=== PATIENT | female | born 1985 | race American Indian/Alaskan Native ===

== ENCOUNTER 2017-03-11 14:01 | Emergency (ER) | payer OTHER ==
[2017-03-11 14:15] VITALS: BP 136/72; PULSE 110; RESP 16; TEMP 98.1; O2SAT 100
--- NOTE | 2017-03-11 15:06 | ED PDOC ---
HPI: Wound Care - HPI Chief Complaint (Nursing): Abnormal Skin Integrity Chief Complaint (Provider): post op poor wound closure History Per: Patient Exam Limitations: no limitations Onset/Duration Of Symptoms: Days Current Symptoms Are (Timing): Still Present Quality Of Symptoms: Other Severity: Mild Additional History Per: Patient Additional Complaint(s): 32 y/o healthy F presenting s/p breast reduction surgery in [place] February 03 2017. Patient [place] february 07 for some left sided breast drainage at the site of incision closure, was prescribed clindamycin x 7 days, finished course February 17. Patient states incision not closing well after sutures dissolved, presenting today to have it checked out. Currently denies discharge from incision site, induration, swelling, erythema, fevers, chills, n/v/abd pain/diarrhea Pending wound care clinic appt March 21, 2017 at [facility] Past Medical History Vital Signs: Last Vital Signs Temp 98.1 F 03/11/17 14:08 Pulse 110 H 03/11/17 14:08 Resp 16 03/11/17 14:08 BP 136/72 03/11/17 14:08 Pulse Ox 100 03/11/17 14:08 - Medical History PMH: No Chronic Diseases - Surgical History Surgical History: (4) - Family History Family History: States: No Known Family Hx - Home Medications Home Medications: Ambulatory Orders Medication Instructions Recorded Metronidazole [Flagyl] 500 mg PO BID #14 tab 08/24/14 - Allergies Allergies/Adverse Reactions: Allergies Allergy/AdvReac Type Severity Reaction Status Date / Time No Known Allergies Allergy Verified 03/11/17 14:07 Review of Systems Constitutional: Negative for: Fever, Chills, Sweats, Weakness, Malaise, Weight loss Eyes: Negative for: Pain ENT: Negative for: Ear Pain Cardiovascular: Negative for: Chest Pain Respiratory: Negative for: Cough, Shortness of Breath Gastrointestinal: Negative for: Nausea, Vomiting, Abdominal Pain Genitourinary Female: Negative for: Dysuria Musculoskeletal: Negative for: Neck Pain, Shoulder Pain Skin: Negative for: Rash, Lesions, Jaundice, Bruising Neurological: Negative for: Weakness, Numbness, Incoordination Physical Exam - Physical Exam Appears: Positive for: No Acute Distress Skin: Positive for: Normal Color, Warm, Dry Eye Exam: Positive for: EOMI, PERRL Neck: Positive for: Normal Cardiovascular/Chest: Positive for: Regular Rate, Rhythm, Other Respiratory: Positive for: Normal Breath Sounds Front/Back of Body: 1 - left sided poor inscision closure at 7 O clock position, non infected, no drainage, underlying fascia visible, slowly healing. No induration, no fluctuance palpated, no swelling, no erythema - ECG O2 Sat by Pulse Oximetry: 100 - Progress ED Course And Treament: Poor healing surgical incision closure - s/p clindamycin x 7 days, -topical silvedene, simple dressing placed with 4x4 - follow up with wound care march 21 Re-evaluation Time: 15:38 Condition: Re-examined, Improved Disposition - Clinical Impression Clinical Impression: Incisional breast wound - Disposition Disposition: Routine/Home Disposition Time: 15:39 Condition: GOOD
[2017-03-11] MEDS ORDERED: Silver Sulfadiazine 1% CREAM (50 gm) ONE (15:08)
[2017-03-11] MEDS: Silver Sulfadiazine 1% CREAM (50 gm) TOP SCH (15:47)
== END 2017-03-11 16:11 | disposition home or self-care (01) ==
LOC: H.ER 14:01
DX: S21.009A Unspecified open wound of unspecified breast, initial encounter (principal); Y84.9 Medical procedure, unspecified as the cause of abnormal reaction of the patient, or of later complication, without mention of misadventure at the time of the procedure; Y92.89 Other specified places as the place of occurrence of the external cause

== ENCOUNTER 2017-08-26 11:45 | Emergency (ER) | payer OTHER ==
[2017-08-26 12:06] VITALS: BP 136/90; PULSE 75; RESP 16; TEMP 98.5; O2SAT 100
--- NOTE | 2017-08-26 12:46 | ED PDOC ---
HPI: Eye Injury/Pain Time Seen by Provider: 08/26/17 12:37 Chief Complaint (Nursing): Eye Problem Chief Complaint (Provider): left eye swelling History Per: Patient History/Exam Limitations: no limitations Onset/Duration Of Symptoms: Hrs Current Symptoms Are (Timing): Still Present Injury To Eye?: No Severity: Moderate Quality: Burning, "Pain" Wears Contact Lens?: No Associated Symptoms: Swelling Additional History Per: Patient Additional Complaint(s): The patient is a 32 y/o female who presents to the ED for evaluation of left eye swelling, which she woke up with this morning. Patient states she noticed a burning sensation to her eye yesterday but denies any injury or insect bite to her eye. Patient denies wearing contact lenses or a foreign body sensation as well. Patient denies fever or chills, no dizziness or headache. Patient denies vision loss or vision change. Past Medical History Reviewed: Historical Data, Nursing Documentation, Vital Signs Vital Signs: Last Vital Signs Temp 98.5 F 08/26/17 12:03 Pulse 75 08/26/17 12:03 Resp 16 08/26/17 12:03 BP 136/90 08/26/17 12:03 Pulse Ox 100 08/26/17 12:03 - Medical History PMH: No Chronic Diseases - Surgical History Surgical History: (4) - Family History Family History: States: No Known Family Hx - Social History Current smoker - smoking cessation education provided: No Ex-Smoker (has not smoked in the last 12 months): No Alcohol: None Drugs: Denies - Home Medications Home Medications: Ambulatory Orders Medication Instructions Recorded Metronidazole [Flagyl] 500 mg PO BID #14 tab 08/24/14 Silver Sulfadiazine 1% 20 gm 1 ea EXT DAILY #1 tube 03/11/17 [Silvadene 1% 20 gm] Clindamycin [Cleocin] 300 mg PO TID #21 cap 08/26/17 Tobramycin [Tobrex] 5 ml TOP QID #1 bottle 08/26/17 - Allergies Allergies/Adverse Reactions: Allergies Allergy/AdvReac Type Severity Reaction Status Date / Time No Known Allergies Allergy Verified 08/26/17 12:33 Review of Systems ROS Statement: Except As Marked, All Systems Reviewed And Found Negative Constitutional: Negative for: Fever Eyes: Positive for: Eyelid Inflammation (left). Negative for: Vision Change, Redness Cardiovascular: Negative for: Chest Pain Respiratory: Negative for: Cough Gastrointestinal: Negative for: Nausea, Vomiting Neurological: Negative for: Headache, Dizziness Physical Exam - Reviewed Nursing Documentation Reviewed: Yes Vital Signs Reviewed: Yes - Physical Exam Appears: Positive for: Non-toxic, No Acute Distress Head Exam: Positive for: NORMAL INSPECTION Skin: Positive for: Warm, Dry Eye Exam: Positive for: EOMI, PERRL, Periorbital swelling (Swelling and slight erythema noted to upper and lower eyelid of left eye, stye is noted to medial left lower lid with no active drainage, central pointing is noted.). Negative for: Conjunctival injection, Scleral icterus Cardiovascular/Chest: Positive for: Regular Rate, Rhythm Respiratory: Positive for: Normal Breath Sounds. Negative for: Respiratory Distress Neurologic/Psych: Positive for: Alert, Oriented - Laboratory Results Urine POC: Negative - ECG O2 Sat by Pulse Oximetry: 100 (RA) Pulse Ox Interpretation: Normal Medical Decision Making Medical Decision Making: Time: 1240 Impression: Blepharitis and stye Plan: -- Motrin 600 mg PO Patient given prescriptions for tobramycin ophthalmic drops as well as clindamycin oral antibiotic. Advised NSAIDs for pain and warm compresses to affected area. Patient was referred to stitching machine feeder or offbearer vacation sales advisor and advised to follow-up in 1-2 days. Scribe Attestation: Documented by Karol Rubi acting as a scribe for LILY Muniz Provider Attestation: All medical record entries made by the Scribe were at my direction and personally dictated by me. I have reviewed the chart and agree that the record accurately reflects my personal performance of the history, physical exam, medical decision making, and the department course for this patient. I have also personally directed, reviewed, and agree with the discharge instructions and disposition. Disposition - Clinical Impression Clinical Impression: Sty, external, Blepharitis of eyelid of left eye - Patient ED Disposition Is Patient to be Admitted: No Counseled Patient/Family Regarding: Diagnosis, Need For Followup, Rx Given - Disposition Referrals: Srinivasan Dorsey MD [Staff Provider] - Disposition: Routine/Home Disposition Time: 13:10 Condition: STABLE Additional Instructions: Take prescription medicines directed. [id number] Tylenol or Advil for pain as needed. Apply warm compresses with Epsom salts to affected area as often as possible. Follow-up with stitching machine feeder or offbearer in one to 2 days. Prescriptions: Clindamycin [Cleocin] 300 mg PO TID #21 cap Tobramycin [Tobrex] 5 ml TOP QID #1 bottle Instructions: Stye (ED), Blepharitis (ED) Forms: [employer] (Ecuadorean), [facility] ED School/Work Excuse
== END 2017-08-26 14:05 | disposition home or self-care (01) ==
LOC: H.ER 11:45
DX: H00.019 Hordeolum externum unspecified eye, unspecified eyelid (principal)

== ENCOUNTER 2018-03-24 11:40 | Emergency (ER) | payer OTHER ==
[2018-03-24 11:44] VITALS: BP 137/81; PULSE 87; TEMP 97; BMI 31.8
[2018-03-24 11:56] VITALS: O2SAT 98
--- NOTE | 2018-03-24 13:00 | ED PDOC ---
HPI: General Adult Time Seen by Provider: 03/24/18 12:04 Chief Complaint (Nursing): Medical Clearance Chief Complaint (Provider): Female genitourinary History Per: Patient History/Exam Limitations: no limitations Onset/Duration Of Symptoms: Days (x4) Current Symptoms Are (Timing): Still Present Additional Complaint(s): Susanna Mcnally is a 33 year old female with no past medical history who is presenting to the ER for evaluation of genital itching and an STI panel, s/p having intercourse with a new partner 8 days ago. Patient states that the symptoms started appearing 4 days ago but denies any back pain, fever, nausea, vomiting, or abdominal pain. She offers no other medical complaints at this time. PMD: none provided Past Medical History Reviewed: Historical Data, Nursing Documentation, Vital Signs Vital Signs: Last Vital Signs Temp 97 F L 03/24/18 11:43 Pulse 87 03/24/18 11:43 Resp BP 137/81 03/24/18 11:43 Pulse Ox 98 03/24/18 13:01 - Medical History PMH: No Chronic Diseases - Surgical History Surgical History: (4) - Family History Family History: States: Unknown Family Hx - Living Arrangements Living Arrangements: With Family - Social History Current smoker - smoking cessation education provided: No Alcohol: None Drugs: Denies - Home Medications Home Medications: Ambulatory Orders Medication Instructions Recorded Clindamycin [Cleocin] 300 mg PO TID #21 cap 08/26/17 Tobramycin [Tobrex] 5 ml TOP QID #1 bottle 08/26/17 Ciprofloxacin [Cipro] 500 mg PO BID #10 tab 03/24/18 - Allergies Allergies/Adverse Reactions: Allergies Allergy/AdvReac Type Severity Reaction Status Date / Time No Known Allergies Allergy Verified 08/26/17 12:33 Review of Systems ROS Statement: Except As Marked, All Systems Reviewed And Found Negative Constitutional: Negative for: Fever Gastrointestinal: Negative for: Nausea, Vomiting, Abdominal Pain Genitourinary Female: Positive for: Other (genital itching ) Musculoskeletal: Negative for: Back Pain Physical Exam - Reviewed Nursing Documentation Reviewed: Yes Vital Signs Reviewed: Yes - Physical Exam Appears: Positive for: Well, Non-toxic, No Acute Distress Head Exam: Positive for: ATRAUMATIC Skin: Positive for: Normal Color Eye Exam: Positive for: Normal appearance ENT: Positive for: Normal ENT Inspection Neck: Positive for: Normal Cardiovascular/Chest: Positive for: Regular Rate, Rhythm. Negative for: Murmur Respiratory: Positive for: Normal Breath Sounds. Negative for: Respiratory Distress Gastrointestinal/Abdominal: Negative for: Tenderness Back: Positive for: Normal Inspection Extremity: Positive for: Normal ROM Neurologic/Psych: Positive for: Alert, Oriented. Negative for: Motor/Sensory Deficits - ECG O2 Sat by Pulse Oximetry: 98 (RA) Pulse Ox Interpretation: Normal Medical Decision Making Medical Decision Making: Time: 12:28 Plan: --ED Urine --ED Urine Dipstick --Urine Culture --Urinalysis --Chlamydia/GC RNA Scribe Attestation: Documented by Tressa Coto, acting as a scribe for Naty Liu PA-C. Provider Scribe Attestation: All medical record entries made by the Scribe were at my direction and personally dictated by me. I have reviewed the chart and agree that the record accurately reflects my personal performance of the history, physical exam, medical decision making, and the department course for this patient. I have also personally directed, reviewed, and agree with the discharge instructions and disposition. Disposition - Clinical Impression Clinical Impression: UTI (urinary tract infection) - Patient ED Disposition Is Patient to be Admitted: No Counseled Patient/Family Regarding: Diagnosis, Need For Followup, Rx Given - Disposition Disposition: Routine/Home Disposition Time: 13:57 Condition: STABLE Prescriptions: Ciprofloxacin [Cipro] 500 mg PO BID #10 tab Instructions: General (DC), Urinary Tract Infections in Adults Forms: [employer] (Lao)
[2018-03-24 13:49] LABS: SQUAMOUS EPITHIAL 19 /hpf (0-5); URINE BACTERIA OCC (<OCC); URINE BILIRUBIN NEGATIVE (NEGATIVE); URINE BLOOD NEGATIVE (NEGATIVE); URINE CLARITY CLOUDY (Clear); URINE COLOR YELLOW (YELLOW); URINE GLUCOSE (UA) NEG (Normal); URINE LEUKOCYTE ESTERASE SMALL Leu/uL (Negative); URINE PROTEIN NEGATIVE (NEGATIVE); URINE UROBILINOGEN 0.2-1.0 mg/dL (0.2-1.0)
== END 2018-03-24 14:24 | disposition home or self-care (01) ==
LOC: H.ER 11:40
DX: N39.0 Urinary tract infection, site not specified (principal)